=== PATIENT | male | born 1990 | race Caucasian/White ===

== ENCOUNTER 2016-05-29 20:00 | Emergency (ER) | payer BC ==
[~2016-05-29] VITALS: Ht 188 cm; Wt 95.5 kg
[2016-05-29 20:02] VITALS: BP 113/63; PULSE 66; TEMP 97.4
[2016-05-29] MEDS ORDERED: FLEXERIL 1010 MG/TAB PO (20:57)
== END 2016-05-29 21:24 | disposition home or self-care (01) ==
LOC: COL.ER 20:00
DX: S39.012A Strain of muscle, fascia and tendon of lower back, initial encounter (principal); X50.0XXA Overexertion from strenuous movement or load, initial encounter; Y92.39 Other specified sports and athletic area as the place of occurrence of the external cause
CPT/HCPCS: J2360